=== PATIENT | male | born 1955 | race Hispanic/Latino ===

== ENCOUNTER 2021-01-11 09:50 | Emergency (ER) | payer OTHER ==
[2021-01-11] MEDS ORDERED: TETANUS,DIPH,PERTUSS(ACELL) VACCINE 0.5 ML SYRINGE IM ONE (11:44)
--- NOTE | 2021-01-11 11:44 | Event Note ---
ED Screening Note ED Screening Note: laceration to chin tripped and fell on the curb hit directly on concrete no LOC +mild headache +nausea unsure of tdap no vomiting states lower section of lip feels tingling denies any blood thinner use states he does take aspirin This initial assessment/diagnostic orders/clinical plan/treatment(s) is/are subject to change based on patients health status, clinical progression and re- assessment by fellow clinical providers in the ED. Further treatment and workup at subsequent clinical providers discretion. Patient/guardian urged not to elope from the ED as their condition may be serious if not clinically assessed and managed. Initial orders include: CTs, tdap, needs lac repair
[2021-01-11] MEDS ORDERED: LIDOCAINE (1%) 10 MG/1 ML VIAL 20 ML MDV INFILTRATI ONE (12:35)
--- NOTE | 2021-01-11 12:35 | Cat Scan Report ---
CT head without contrast CT facial bones without contrast HISTORY: fell, hit face, chin laceration. TECHNIQUE: Axial imaging performed from the skull apex through the skull base without the use of con trast. All CT scans at this location are performed using CT dose reduction for ALARA by means of aut omated exposure control. COMPARISON: None FINDINGS: Parenchyma: No acute intracranial hemorrhage or parenchymal abnormality. Ventricles: There is mild diffuse brain atrophy with commensurate ventricular enlargement which is l ikely age appropriate. Soft tissues: There is a laceration of the patient's chin overlying the mental protuberance, with ov erlying soft tissue swelling and small hematoma. Bones: No acute osseous abnormality. Sinuses: There is mild mucosal thickening in the left maxillary and left sphenoid sinuses. Remaining sinuses and mastoid air cells are clear. IMPRESSION: 1. Soft tissue injury over the chin as outlined above with no underlying fracture. 2. No acute intracranial abnormality. 3. Mild paranasal sinus disease. Signer Name: Darian Hernandez MD Signed: 01/11/2021 12:31 PM Workstation Name: [id number]
--- NOTE | 2021-01-11 12:38 | Emergency Department Report ---
- General Chief Complaint: Wound/Laceration Stated Complaint: FALL, CHIN INJURY Time Seen by Provider: 01/11/21 11:41 Source: patient Mode of arrival: Ambulatory Limitations: No Limitations - History of Present Illness Initial Comments: 66-year-old male presents to the ER today for evaluation of a chin laceration. Patient states that he was distracted while trying to put on his mask when he tripped over a curb in a parking lot causing him to fall forward and striking his chin against the concrete. He states that this occurred at work this morning around 5 AM. He denies any LOC. He complains of a laceration to his chin as well as some lower jaw pain. He denies any headache, dizziness, neck pain, extremity pain or any other symptoms at this time. He is not any blood th inners. -: Sudden, This morning (5 am ) Location: face - Related Data Previous Rx's Medication Instructions Recorded Last Taken Type Acetaminophen [Acetaminophen 8 650 mg PO Q8HR PRN #30 tablet.er 01/11/21 Unknown Rx Hour] cephALEXin [Keflex] 500 mg PO Q12HR #14 cap 01/11/21 Unknown Rx Allergies Allergy/AdvReac Type Severity Reaction Status Date / Time No Known Allergies Allergy Verified 01/11/21 09:58 ED Review of Systems ROS: Stated complaint: FALL, CHIN INJURY Other details as noted in HPI Comment: All other systems reviewed and negative Constitutional: denies: chills, fever Eyes: denies: eye pain, eye discharge, vision change ENT: denies: ear pain, throat pain Respiratory: denies: cough, shortness of breath, SOB with exertion, SOB at rest, wheezing Cardiovascular: denies: chest pain, palpitations Gastrointestinal: denies: abdominal pain, nausea, diarrhea, constipation, hematemesis, melena, hematochezia Genitourinary: denies: urgency, dysuria Skin: other (Laceration to chin) Neurological: denies: headache, weakness, paresthesias Psychiatric: denies: anxiety, depression, auditory hallucinations, visual hallucinations, homicidal thoughts, suicidal thoughts Hematological/Lymphatic: denies: easy bleeding, easy bruising ED Past Medical Hx - Past Medical History Previous Medical History?: No - Social History Smoking Status: Never Smoker Substance Use Type: None - Medications Home Medications: Home Medications Medication Instructions Recorded Confirmed Last Taken Type Acetaminophen [Acetaminophen 8 650 mg PO Q8HR PRN #30 tablet.er 01/11/21 Unknown Rx Hour] cephALEXin [Keflex] 500 mg PO Q12HR #14 cap 01/11/21 Unknown Rx ED Physical Exam - General Limitations: No Limitations General appearance: alert, in no apparent distress - Head Head exam: Present: atraumatic, normocephalic, normal inspection - Eye Eye exam: Present: normal appearance, PERRL, EOMI Pupils: Present: normal accommodation - ENT ENT exam: Present: normal exam, mucous membranes moist, other ( There is tenderness mainly to anterior lower jaw and around wound with mild swelling but no deformity ) - Expanded ENT Exam Expanded Mouth exam: Present: other (No malocclusion). Absent: drooling, trismus, muffled voice, tongue normal, tongue elevation, laceration Teeth exam: Present: normal inspection, other (No dental injury) Throat exam: Positive: normal inspection - Neck Neck exam: Present: normal inspection, full ROM - Respiratory Respiratory exam: Present: normal lung sounds bilaterally. Absent: respiratory distress - Cardiovascular Cardiovascular Exam: Present: regular rate - Neurological Exam Neurological exam: Present: alert, oriented X3, CN II-XII intact, normal gait - Psychiatric Psychiatric exam: Present: normal affect, normal mood - Skin Skin exam: Present: other (Approximately 4 cm deep linear laceration noted to the chin. It does not appear to involve inside the mouth. No obvious muscle/fascia/bony injury. Mild active bleeding but this is controlled with pressure. ) ED Course Vital Signs 01/11/21 01/11/21 09:56 13:40 Temperature 98 F Pulse Rate 88 74 Respiratory 18 18 Rate Blood Pressure 165/114 Blood Pressure 158/98 [Right] O2 Sat by Pulse 98 Oximetry - Laceration /Wound Repair Anterior Jaw Wound Location: face (Chin ) Wound's Depth, Shape: linear (deep into subcu tissue) Wound Explored: clean Irrigated w/ Saline (ccs): 30 Betadine Prep?: Yes Anesthesia: 1% Lidocaine Volume Anesthetic (ccs): 7 Wound Repaired With: sutures Suture Size/Type: 5:0, proline Number of Sutures: 10 Layer Closure?: Yes Deep Layer Suture Size/Type: 3:0 (Vicryl) Number Deep Layer Sutures: 2 Sterile Dressing Applied?: Yes Progress: Patient tolerated procedure well without any complication. ED Medical Decision Making - Radiology Data Radiology results: report reviewed Patient: LORETO FERNANDEZ MR#: [id number] : 1955 Acct:[id number] Age/Sex: 66 / M ADM Date: 01/11/21 Loc: ED Attending Dr: Ordering Physician: DARWIN MALLOY Date of Service: 01/11/21 Procedure(s): CT facial bones wo con Accession Number(s): [id number] cc: DARWIN MALLOY CT head without contrast CT facial bones without contrast HISTORY: fell, hit face, chin laceration. TECHNIQUE: Axial imaging performed from the skull apex through the skull base without the use of contrast. All CT scans at this location are performed using CT dose reduction for ALARA by means of automated exposure control. COMPARISON: None FINDINGS: Parenchyma: No acute intracranial hemorrhage or parenchymal abnormality. Ventricles: There is mild diffuse brain atrophy with commensurate ventricular enlargement which is likely age appropriate. Soft tissues: There is a laceration of the patient's chin overlying the mental protuberance, with overlying soft tissue swelling and small hematoma. Bones: No acute osseous abnormality. Sinuses: There is mild mucosal thickening in the left maxillary and left sphenoid sinuses. Remaining sinuses and mastoid air cells are clear. IMPRESSION: 1. Soft tissue injury over the chin as outlined above with no underlying fracture. 2. No acute intracranial abnormality. 3. Mild paranasal sinus disease. Signer Name: Darian Hernandez MD Signed: 01/11/2021 12:31 PM Workstation Name: [id number] Transcribed By: JW Dictated By: Darian Hernandez MD Electronically Authenticated By: Darian Hernandez MD Signed Date/Time: 01/11/21 1231 DD/ 1227 TD/TT: - Medical Decision Making 66-year-old male presents to the ER today for evaluation of a chin laceration. Patient states that he was distracted while trying to put on his mask when he tripped over a curb in a parking lot causing him to fall forward and striking his chin against the concrete. He states that this occurred at work this morning around 5 AM. He denies any LOC. He complains of a laceration to his chin as well as some lower jaw pain. He denies any headache, dizziness, neck pain, extremity pain or any other symptoms at this time. He is not any blood thinners. 1325: Head CT shows nothing acute. Facial CT shows soft tissue swelling and laceration but no bony injury any other acute abnormality. Patient laceration to his chin was repaired by me, see procedure note for detail. Patient currently is well-appearing, not toxic and is not in any acute distress. He is neurologically intact with a normal gait in the ER. CT results and wound care discussed with patient. Patient stable at time of discharge - Differential Diagnosis Intracranial bleed, skull fracture, facial fracture, dislocation Critical care attestation.: If time is entered above; I have spent that time in minutes in the direct care of this critically ill patient, excluding procedure time. ED Disposition Clinical Impression: Chin laceration, Facial contusion Disposition: TO HOME OR SELFCARE Is pt being admited?: No Does the pt Need Aspirin: No Condition: Stable Instructions: Facial or Scalp Contusion, Laceration Care, Adult, Sutured Wound Care Additional Instructions: Take the Tylenol as prescribed to help with the pain. Take the antibiotics as prescribed. Keep the wound clean with soap and water, do not use peroxide or alcohol. Dry well after each cleaning. Apply a small amount of Neosporin after each cleaning. Do these daily until its time to have the stitches removed. Recommend the sutures be removed in 7 to 10 days. You can return to the ER or follow-up with your primary care doctor to have the sutures removed. Return sooner to the ER if there is any signs or symptoms of infection such as pus drainage, increasing redness or swelling. Prescriptions: Acetaminophen [Acetaminophen 8 Hour] 650 mg PO Q8HR PRN #30 tablet.er PRN Reason: Pain, Moderate (4-6) cephALEXin [Keflex] 500 mg PO Q12HR #14 cap Referrals: PRIMARY CARE, [Primary Care Provider] - 7-10 days Forms: Work/School Release Form(ED) Time of Disposition: 13:16
[2021-01-11] MEDS ORDERED: NEOMY 3.5 MG/BACIT 400 UNITS/POLY B 5000 UNITS/GM OINT PACKET TP ONE (13:16)
[2021-01-11 13:41] VITALS: BP 158/98
== END 2021-01-11 13:43 | disposition home or self-care (01) ==
LOC: ED 09:50
DX: S01.81XA Laceration without foreign body of other part of head, initial encounter (principal); Z79.899 Other long term (current) drug therapy; W18.30XA Fall on same level, unspecified, initial encounter; Y93.89 Activity, other specified; Y92.89 Other specified places as the place of occurrence of the external cause; Y99.0 Civilian activity done for income or pay
CPT/HCPCS: 70450; 70486; 90471; 90715